=== PATIENT | male | born 1995 | race Two or more races ===

== ENCOUNTER 2016-09-10 00:36 | Inpatient (IN) | payer OTHER ==
[~2016-09-10] VITALS: Ht 175.3 cm; Wt 82.9 kg
[2016-09-10 01:41] LABS: MEAN CORPUSCULAR HEMOGLOBIN 30.8 pg (27.0-33.0); MEAN CORPUSCULAR HGB CONC 34.4 g/dl (32.0-36.5); MEAN CORPUSCULAR VOLUME 89.6 fl (80.0-96.0); WHITE BLOOD COUNT 7.5 K/mm3 (4.0-10.0)
[2016-09-10 01:58] LABS: METHADONE URINE NEGATIVE (NEGATIVE)
[2016-09-10 02:26] LABS: ALBUMIN 4.6 GM/DL (3.2-5.2); ALBUMIN/GLOBULIN RATIO 1.39 (1.00-1.93); ALKALINE PHOSPHATASE 72 U/L (45-117); ALT/SGPT 26 U/L (12-78); ANION GAP 9 MEQ/L (8-16); AST/SGOT 30 U/L (15-37); BILIRUBIN,DIRECT < 0.1 MG/DL (0.0-0.2); BILIRUBIN,TOTAL 0.2 MG/DL (0.2-1.0); BLOOD UREA NITROGEN 12 MG/DL (7-18); CALCIUM LEVEL 9.1 MG/DL (8.5-10.1); CARBON DIOXIDE LEVEL 23 MEQ/L (21-32); CHLORIDE LEVEL 109 MEQ/L (98-107); CREATININE FOR GFR 0.93 MG/DL (0.70-1.30); GLUCOSE, FASTING 97 MG/DL (70-105); SODIUM LEVEL 141 MEQ/L (136-145); TOTAL PROTEIN 7.9 GM/DL (6.4-8.2)
[2016-09-10] MEDS ORDERED: MULTIVITAMINS/MINERALS THERAP 1 TAB PO SCH (09:00)
[2016-09-10] MEDS ORDERED: SERTRALINE HCL 50 MG TAB PO SCH (09:00)
[2016-09-10] MEDS ORDERED: ACETAMINOPHEN TAB 650MG DOSE (2X325MG) PO PRN (10:00)
[2016-09-10] MEDS ORDERED: LORazepam 2 MG TAB PO PRN (10:00)
[2016-09-10] MEDS ORDERED: MOM 30ML SUSPENSION UDC PO PRN (10:00)
[2016-09-10] MEDS ORDERED: traZODone 50 MG TAB PO PRN (10:00)
[2016-09-10] MEDS ORDERED: MAALOX 30 ML SUSP *UDC PO PRN (10:00)
[2016-09-10] MEDS: SERTRALINE HCL 50 MG TAB PO SCH (11:23)
[2016-09-10] MEDS: THIAMINE 100 MG TAB PO SCH ×2 (11:23→21:25)
[2016-09-10] MEDS: MULTIVITAMINS/MINERALS THERAP 1 TAB PO SCH (11:23)
[2016-09-10] MEDS: FOLIC ACID 1 MG TAB PO SCH (11:23)
[2016-09-10] MEDS: NICOTINE 21MG/24HR 1 EA TRANSDERMAL TD SCH (11:23)
[2016-09-10 13:52] VITALS: BP 120/58
[2016-09-10] MEDS ORDERED: traZODone 100 MG TAB PO PRN (15:15)
[2016-09-10] MEDS: hydrOXYzine 50 MG TAB PO SCH ×2 (15:48→21:25)
[2016-09-10 18:11] VITALS: BP 127/66
[2016-09-10] MEDS ORDERED: THIAMINE 100 MG TAB PO SCH (21:00)
[2016-09-11] MEDS: hydrOXYzine 50 MG TAB PO SCH ×3 (05:53→21:17)
[2016-09-11 06:00] VITALS: BP 111/53
[2016-09-11] MEDS: NICOTINE 21MG/24HR 1 EA TRANSDERMAL TD SCH (09:00)
[2016-09-11] MEDS: MULTIVITAMINS/MINERALS THERAP 1 TAB PO SCH (09:25)
[2016-09-11] MEDS: THIAMINE 100 MG TAB PO SCH ×2 (09:25→21:17)
[2016-09-11] MEDS: SERTRALINE HCL 50 MG TAB PO SCH (09:25)
[2016-09-11] MEDS: FOLIC ACID 1 MG TAB PO SCH (09:25)
[2016-09-11 09:57] VITALS: BP 111/53
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
[2016-09-11] MEDS: QUEtiapine FUMARATE 100 MG TAB PO SCH ×2 (11:37→21:17)
[2016-09-11 12:00] VITALS: BP 127/64
[2016-09-11 18:18] VITALS: BP 124/64
--- NOTE | 2016-09-12 02:20 | HPE ---
DATE OF ADMISSION: 09/10/2016 HISTORY OF PRESENT ILLNESS: Please refer to psychiatric history and evaluation for further details on this admission. This examination and history is intended for medical issues, which may need treatment, followup or consult on this 21-year-old male. ALLERGIES: AMOXICILLIN. PRIMARY CARE PROVIDER: [facility]. 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 Ethyl alcohol (EtOH) once a month. Smokes one pack every 3 days. Recreational drug use: None. PAST MEDICAL HISTORY: Negative. PAST SURGICAL HISTORY: Negative. HOME MEDICATIONS: Negative. FAMILY HISTORY: Noncontributory. LABORATORY STUDIES: CBC was normal. Sodium 140, potassium 4.0, chloride 109, CO2 23, BUN 12, creatinine 0.93. EtOH 0.159. REVIEW OF SYSTEMS: 10-system review was done, was unremarkable. PHYSICAL EXAMINATION: 21-year-old cooperative male in no acute distress. Height 69 inches, weight 80.9 kg, body mass index (BMI) 26.3. Blood pressure 126/64, pulse 65, respirations 16. Patient is alert and oriented times three. Pupils equal and react to light. Extraocular muscles intact. Cornea and sclerae clear. Conjunctivae were normal. No facial asymmetry. Pharynx, tongue and gums pink and moist. Tongue is midline. Neck is supple without lymphadenopathy. No thyromegaly, no goiter. Carotids 2+ without bruit. Chest clear to auscultation without wheeze or retraction. Heart is regular. Abdomen is benign. Bowel sounds positive. Genitourinary/rectal: Not done. Extremities: Show equal strength, full range of motion. No cyanosis, clubbing or edema. Peripheral pulses equal and palpable bilaterally. Skin is warm and dry. IMPRESSION/PLAN: Psychiatric plan per psychiatry. No acute medical issues.
[2016-09-12] MEDS: hydrOXYzine 50 MG TAB PO SCH ×3 (06:02→21:19)
[2016-09-12 06:34] VITALS: BP 124/57
[2016-09-12 08:00] VITALS: BP 124/57
[2016-09-12] MEDS: QUEtiapine FUMARATE 100 MG TAB PO SCH ×2 (09:04→21:19)
[2016-09-12] MEDS: SERTRALINE HCL 50 MG TAB PO SCH (09:04)
[2016-09-12] MEDS: THIAMINE 100 MG TAB PO SCH ×2 (09:04→21:19)
[2016-09-12] MEDS: MULTIVITAMINS/MINERALS THERAP 1 TAB PO SCH (09:04)
[2016-09-12] MEDS: NICOTINE 21MG/24HR 1 EA TRANSDERMAL TD SCH (09:04)
[2016-09-12] MEDS: FOLIC ACID 1 MG TAB PO SCH (09:04)
[2016-09-12 16:36] VITALS: BP 120/73
[2016-09-12 18:00] VITALS: BP 115/60
--- NOTE | 2016-09-12 19:24 | MHIPNPDOC ---
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 Patient denies prior psychiatric history, denies history of suicide. Community Health Counselor met with patient today to assess treatment progress on inpatient unit. Patient was observed to be in bed but readily got up to meet with short story writer, indicated he had been admitted due to "thoughts of suicide," denies experiencing suicidal ideation at this time, notes he last experienced suicidal ideation just prior to hospital admission, denies having plan or intent at that time. Patient rates current anxiety level as 5/10, depression 3/10, denies suicidal and homicidal ideation, denies auditory and visual hallucinations, denies urge to engage in self-injurious behavior. Patient indicates current medication regimen is helping, notes Zoloft is effective in reducing symptoms of anxiety and depression, informs short story writer he is struggling with sleep. Patient declines to have trazodone dose increased at this time, sleep hygiene was reviewed with patient was encouraged not to nap/remain in bed during the day. Patient denies medication side effects, also denies symptoms of craving or withdrawal. Patient notes energy level remains low, described appetite as "fine, " denies challenges with concentration and focus. Patient was encouraged to be visible on the unit and participate in unit activities. Patient denies symptoms of physical pain and presents with no signs of acute distress at time of interaction. VITALS: See below NEW TEST RESULTS: No new results PAST MEDICAL/SURGICAL HISTORY: Patient denies history of chronic medical conditions, further denies history of head injury or seizure Labs on admission indicated elevated chloride UDS negative EtOH 0.159 EKG pending CURRENT MEDICATIONS: See below MENTAL STATUS EXAMINATION: General appearance: Patient is a 21-year old male, who is pleasant and cooperative though distant and somewhat difficult to engage, makes fair eye contact, is disheveled, dressed in hospital clothing, ambulates with steady gait , appears stated age. Speech: Impoverished, provides monosyllabic responses, monotone but of normal rate and rhythm, low volume, and generally spontaneous, coherent Thought processes: Linear, logical, rational Thought content: Rational, logical, no tangentiality or paranoia noted, no perseveration Abstract reasoning and computation: Requires further evaluation Description of associations: Appear intact Description of abnormal or psychotic thoughts: Denies suicidal and homicidal ideation, denies auditory and visual hallucinations, does not appear to be responding to internal stimuli, does not appear to endorse bizarre or paranoid ideation, denies preoccupation with violence or obsessions. Judgment: Poor. Insight: Poor. Orientation: A and O 3 Recent and remote memory: Fair. Attention span and concentration: Fair. Fund of knowledge: Requires further evaluation Mood: "A little better today, I think the medication might be helping." Patient appears depressed and anxious, no mood lability noted Affect: Blunted, no brightening DIAGNOSES: Adjustment disorder with mixed anxiety and depressed mood, alcohol use disorder. Rule out substance-induced mood disorder, rule out depressive disorder, rule out bereavement, rule out PTSD ASSESSMENT: Patient appears to be adjusting to unit slowly, is not participating in unit activities, remains isolative to room, is difficult to engage but generally pleasant and cooperative, has presented with no behavior management challenges. Patient states current medication regimen is helping to reduce symptoms of anxiety and depression, is aware he is also being monitored on CIMN protocol, denies symptoms of craving or withdrawal. Patient states he experienced nighttime waking last night, refuses trazodone dose increase indicating he wants to see how he sleeps tonight before medication dose increase. Sleep hygiene was reviewed with patient and patient was encouraged to be up out of bed during the day and sleeping only at night. Patient has been encouraged to be visible on unit and to participate in groups. Patient denies current suicidal or homicidal ideation and verbalizes awareness of how to access supportive services on the unit if needed. Will monitor patient's response to medications and for medication side effects.. Will evaluate patient' s safety, resolution of suicidal ideation, and discharge readiness. Patient indicates when prepared for discharge she wants to return to [facility], has no desire to exit the [employer], is agreeable to participating in outpatient behavioral health services, provides no answer when asked about interest in participating in IOP/GILMAR. customer relations coordinator is attempting to access background treatment information on patient. MANAGEMENT PLAN: Continue Zoloft 50 mg po q am, Seroquel 100 mg po BID, hydroxyzine 50 mg po q 8 hours, trazodone 100 mg po q hs, monitor need for dosing adjustment to sleep aid Patient on CIWA protocol Maintain safety precautions Patient to attend groups and participate in unit programming to develop coping strategies Engage patient in discharge planning process and arrange meeting with command to evaluate safe discharge planning when appropriate Patient to follow up with [facility] upon discharge TIME SPENT: 35 minutes Vital Signs Vital Signs Date Time Temp Pulse Resp B/P (MAP) Pulse Ox O2 Delivery O2 Flow Rate FiO2 09/12/16 18:00 98.5 58 16 115/60 (78) 09/10/16 09:35 99 Room Air Current Medications Current Medications Acetaminophen (Tylenol Tab) 650 mg Q6HP PRN PO HEADACHE or DISCOMFORT; Start at 10:00; Stop 10/10/16 at 09:59 Al Hydrox/Mg Hydrox/Simethicone (Mylanta) 30 ml Q4HP PRN PO HEARTBURN/ INDIGESTION; Start 09/10/16 at 10:00; Stop 10/10/16 at 09:59 Folic Acid (Folic Acid) 1 mg DAILY PO Last administered on 09/12/16 09:04; Start 09/10/16 at 09:00; Stop 10/10/16 at 08:59 Home Med (Med Rec Complete!) ASDIRECTED XX ; Start 09/10/16 at 09:00; Stop at 09:00; Status DC Hydroxyzine HCl (Atarax) 50 mg Q8H PO Last administered on 09/12/16 14:30; Start 09/10/16 at 14:00; Stop 10/10/16 at 13:59 Lorazepam (Ativan) 2 mg ASDIRECTED PRN PO SEE PROTOCOL; Start 09/10/16 at 10:00 ; Stop 09/17/16 at 09:59 Magnesium Hydroxide (Milk Of Magnesia) 30 ml DAILYPRN PRN PO CONSTIPATION; Start 09/10/16 at 10:00; Stop 10/10/16 at 09:59 Multivitamins (Theragram-M) 1 tab DAILY PO ; Start 09/10/16 at 09:00; Stop 09/10 at 10:05; Status DC Multivitamins (Theragram-M) 1 tab DAILY PO Last administered on 09/12/16 09:04 ; Start 09/10/16 at 09:00; Stop 10/10/16 at 08:59 Nicotine (Nicoderm Cq 21mg) 1 patch DAILY TD Last administered on 09/12/16 09: 04; Start 09/10/16 at 09:00; Stop 10/10/16 at 08:59 Quetiapine Fumarate (SEROquel) 100 mg BID PO Last administered on 09/12/16 09: 04; Start 09/11/16 at 09:00; Stop 10/11/16 at 08:59 Sertraline HCl (Zoloft) 50 mg DAILY PO ; Start 09/10/16 at 09:00; Stop 09/10/16 at 10:05; Status DC Sertraline HCl (Zoloft) 50 mg DAILY PO Last administered on 09/12/16 09:04; Start 09/10/16 at 09:00; Stop 10/10/16 at 08:59 Thiamine HCl (Thiamine HCl) 100 mg BID PO Last administered on 09/12/16 09:04 ; Start 09/10/16 at 09:00; Stop 09/13/16 at 08:59 Thiamine HCl (Thiamine HCl) 100 mg BID PO ; Start 09/10/16 at 21:00; Stop at 21:00; Status DC Trazodone HCl (Desyrel) 50 mg QHSP PRN PO INSOMNIA; Start 09/10/16 at 10:00; Stop 09/10/16 at 15:12; Status DC Trazodone HCl (Desyrel) 100 mg QHSP PRN PO INSOMNIA Last administered on 21:25; Start 09/10/16 at 15:15; Stop 10/10/16 at 15:14 Allergies Coded Allergies: Amoxicillin (Verified Allergy, Unknown, 09/10/16) Maty Hernandez Sep 12, 2016 19:24
[2016-09-13] MEDS: hydrOXYzine 50 MG TAB PO SCH ×2 (05:34→13:08)
[2016-09-13 06:00] VITALS: BP 128/64
[2016-09-13] MEDS: MULTIVITAMINS/MINERALS THERAP 1 TAB PO SCH (08:25)
[2016-09-13] MEDS: SERTRALINE HCL 50 MG TAB PO SCH (08:25)
[2016-09-13] MEDS: QUEtiapine FUMARATE 100 MG TAB PO SCH ×2 (08:25→21:34)
[2016-09-13] MEDS: FOLIC ACID 1 MG TAB PO SCH (08:25)
[2016-09-13] MEDS: NICOTINE 21MG/24HR 1 EA TRANSDERMAL TD SCH (08:39)
--- NOTE | 2016-09-13 16:53 | ECGEPIP ---
Stationary ECG Study [facility] Test Date: 2016-09-13 Pat Name: CYRUS ROMO Department: Room: [place] [address] Gender: M Interstate Planner: : 1995 Requested By: Maty Hernandez Order Number: [id number] Reading MD: Lito Sandra Measurements Intervals [place] Rate: 51 P: 55 LA: 141 QRS: 40 QRSD: 99 T: 10 QT: 408 QTc: 379 Interpretive Statements SINUS BRADYCARDIA Incomplete RBBB Early repolarization Within normal limits for age Electronically Signed On 09-13-2016 16:53:19 EDT by Lito Sandra
--- NOTE | 2016-09-13 17:19 | MHIPNPDOC ---
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 Patient denies prior psychiatric history, denies history of suicide. Website Developer met with patient today to assess treatment progress on inpatient unit. Patient was observed to be up out of bed, in lounge, isolated to self but visible, readily met with database report writer for assessment purposes. Patient spoke a little bit today about his last elation chip which ended last July, indicated relationship due to "long distance," indicates he is not close to his family, informs database report writer he does not know their contact information. Patient states he has friends in the [place] area and feels he has adequate local support. Patient reports improvement to symptoms of anxiety and depression, indicates he believes medications are helping, denies medication side effects. Patient denies suicidal and homicidal ideation, denies auditory and visual hallucinations, denies urge to engage in self-injurious behavior. Patient reports improvement to sleep, but notes he continues to experience challenges, states he does not want take trazodone for sleep but is agreeable to changing Seroquel dosing to at bedtime. Sleep hygiene was again reviewed with patient and patient was encouraged not to nap/remain in bed during the day. Patient denies symptoms of craving or withdrawal. Patient reports some improvement to energy level, states appetite is stable, denies challenges with concentration and focus. Patient was encouraged to remain visible on the unit and participate in unit activities. Patient denies symptoms of physical pain and presents with no signs of acute distress at time of interaction. VITALS: See below NEW TEST RESULTS: No new results PAST MEDICAL/SURGICAL HISTORY: Patient denies history of chronic medical conditions, further denies history of head injury or seizure Labs on admission indicated elevated chloride UDS negative EtOH 0.159 EKG pending CURRENT MEDICATIONS: See below MENTAL STATUS EXAMINATION: General appearance: Patient is a 21-year old male, who is pleasant and cooperative though remains distant, is somewhat easier to engage today, makes improved eye contact, appears less disheveled, dressed in hospital clothing, ambulates with steady gait, appears stated age. Speech: Remains impoverished but is somewhat more verbal today, remains monotone but of normal rate and rhythm, normal volume, more spontaneous today, coherent Thought processes: Linear, logical, rational Thought content: Rational, logical, no tangentiality or paranoia noted, no perseveration Abstract reasoning and computation: Requires further evaluation Description of associations: Appear intact Description of abnormal or psychotic thoughts: Denies suicidal and homicidal ideation, denies auditory and visual hallucinations, does not appear to be responding to internal stimuli, does not appear to endorse bizarre or paranoid ideation, denies preoccupation with violence or obsessions. Judgment: Poor. Insight: Poor. Orientation: A and O 3 Recent and remote memory: Fair. Attention span and concentration: Requires further evaluation but appear within normal limits Fund of knowledge: Requires further evaluation but appears within normal limits Mood: "I'm okay, maybe a little better today." Patient appears depressed, less anxious today, no mood lability noted Affect: Blunted, brightens 1, congruent with mood DIAGNOSES: Adjustment disorder with mixed anxiety and depressed mood, alcohol use disorder. Rule out substance-induced mood disorder, rule out depressive disorder, rule out bereavement, rule out PTSD ASSESSMENT: Patient continues to adjust to unit, is not participating in unit activities, is more visible on unit and less isolative to room, is somewhat easier to engage today, remains generally pleasant and cooperative, has presented with no behavior management challenges. Patient states current medication regimen continues to help reduce symptoms of anxiety and depression, is aware he is also being monitored on CIDC protocol, denies symptoms of craving or withdrawal. Patient reports some improvement to sleep but states he experienced nighttime waking last night, refuses trazodone, is agreeable to changing Seroquel to at bedtime dosing in effort to continue to improve mood and sleep. Patient denies medication side effects. Patient has been encouraged to remain visible on unit and to participate in groups. Patient denies current suicidal or homicidal ideation and verbalizes awareness of how to access supportive services on the unit if needed. Will change Seroquel to hs dosing and discontinue trazodone. Will continue to monitor patient's response to medications and for medication side effects. Will also continue to evaluate patient's safety, resolution of suicidal ideation, and discharge readiness. Patient indicates when prepared for discharge he wants to return to [place], states he has no desire to exit the [employer]. Patient remains agreeable to participating in outpatient medication management, indicates he is not interested in psychotherapy or participating in IOP/GILMAR, but states he is agreeable to following treatment recommendations of [facility]. pesticide use medical coordinator was informed today that [facility] will not be chaptering patient out of [facility] at this time, continues to attempt to access background information on patient. MANAGEMENT PLAN: Continue Zoloft 50 mg po q am. Change Seroquel to 200 mg po hs. Change hydroxyzine to 50 mg po q 8 hours PRN anxiety/agitation. Discontinue trazodone 100 mg po q hs. Patient remains on CIWA protocol Maintain safety precautions Patient to attend groups and participate in unit programming to develop coping strategies Engage patient in discharge planning process and arrange meeting with command to evaluate safe discharge planning when appropriate Patient to follow up with [facility] upon discharge TIME SPENT: 35 minutes Vital Signs Vital Signs Date Time Temp Pulse Resp B/P (MAP) Pulse Ox O2 Delivery O2 Flow Rate FiO2 09/13/16 06:00 97.6 58 16 128/64 (85) 99 Room Air Current Medications Current Medications Acetaminophen (Tylenol Tab) 650 mg Q6HP PRN PO HEADACHE or DISCOMFORT; Start at 10:00; Stop 10/10/16 at 09:59 Al Hydrox/Mg Hydrox/Simethicone (Mylanta) 30 ml Q4HP PRN PO HEARTBURN/ INDIGESTION; Start 09/10/16 at 10:00; Stop 10/10/16 at 09:59 Folic Acid (Folic Acid) 1 mg DAILY PO Last administered on 09/13/16 08:25; Start 09/10/16 at 09:00; Stop 10/10/16 at 08:59 Home Med (Med Rec Complete!) ASDIRECTED XX ; Start 09/10/16 at 09:00; Stop at 09:00; Status DC Hydroxyzine HCl (Atarax) 50 mg Q8H PO Last administered on 09/13/16 13:08; Start 09/10/16 at 14:00; Stop 10/10/16 at 13:59 Lorazepam (Ativan) 2 mg ASDIRECTED PRN PO SEE PROTOCOL; Start 09/10/16 at 10:00 ; Stop 09/17/16 at 09:59 Magnesium Hydroxide (Milk Of Magnesia) 30 ml DAILYPRN PRN PO CONSTIPATION; Start 09/10/16 at 10:00; Stop 10/10/16 at 09:59 Multivitamins (Theragram-M) 1 tab DAILY PO ; Start 09/10/16 at 09:00; Stop 09/10 at 10:05; Status DC Multivitamins (Theragram-M) 1 tab DAILY PO Last administered on 09/13/16 08:25 ; Start 09/10/16 at 09:00; Stop 10/10/16 at 08:59 Nicotine (Nicoderm Cq 21mg) 1 patch DAILY TD Last administered on 09/12/16 09: 04; Start 09/10/16 at 09:00; Stop 10/10/16 at 08:59 Quetiapine Fumarate (SEROquel) 100 mg BID PO Last administered on 09/13/16 08: 25; Start 09/11/16 at 09:00; Stop 10/11/16 at 08:59 Sertraline HCl (Zoloft) 50 mg DAILY PO ; Start 09/10/16 at 09:00; Stop 09/10/16 at 10:05; Status DC Sertraline HCl (Zoloft) 50 mg DAILY PO Last administered on 09/13/16 08:25; Start 09/10/16 at 09:00; Stop 10/10/16 at 08:59 Thiamine HCl (Thiamine HCl) 100 mg BID PO Last administered on 09/12/16 21:19 ; Start 09/10/16 at 09:00; Stop 09/13/16 at 08:59; Status DC Thiamine HCl (Thiamine HCl) 100 mg BID PO ; Start 09/10/16 at 21:00; Stop at 21:00; Status DC Trazodone HCl (Desyrel) 50 mg QHSP PRN PO INSOMNIA; Start 09/10/16 at 10:00; Stop 09/10/16 at 15:12; Status DC Trazodone HCl (Desyrel) 100 mg QHSP PRN PO INSOMNIA Last administered on 21:25; Start 09/10/16 at 15:15; Stop 10/10/16 at 15:14 Allergies Coded Allergies: Amoxicillin (Verified Allergy, Unknown, 09/10/16) Maty Hernandez Sep 13, 2016 17:19
[2016-09-13 18:00] VITALS: BP 112/59
[2016-09-13 21:00] VITALS: BP 122/62
[2016-09-13 21:45] VITALS: BP 112/59
[2016-09-13] MEDS ORDERED: hydrOXYzine 50 MG TAB PO PRN (22:00)
[2016-09-14 06:59] VITALS: BP 120/57
[2016-09-14 08:30] VITALS: BP 120/57
[2016-09-14] MEDS: MULTIVITAMINS/MINERALS THERAP 1 TAB PO SCH (08:45)
[2016-09-14] MEDS: FOLIC ACID 1 MG TAB PO SCH (08:45)
[2016-09-14] MEDS: SERTRALINE HCL 50 MG TAB PO SCH (08:46)
[2016-09-14] MEDS: NICOTINE 21MG/24HR 1 EA TRANSDERMAL TD SCH (08:46)
--- NOTE | 2016-09-14 09:28 | MHIPNPDOC ---
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 Patient denies prior psychiatric history, denies history of suicide. Stave Log Ripsaw Operator met with patient today to assess treatment progress on inpatient unit. Patient was observed to be up out of bed, in lounge, engaging with peers at table, readily met with resume writer for assessment purposes. Patient today spoke openly today about limited support at home in [place], [place], on [facility] , states he has limited contact with family but indicated he has friends at [place], and was able to engage in the safety planning process, verbalizes concrete strategies for mitigating symptoms of anxiety, depression, or suicidal ideation, frustration/aggression should they reemerge. Patient states he feels he has better understanding of peers suicide on [facility], indicates he is aware that he is not responsible for peers choices or actions. Patient states current medication remains effective and he denies medication side effects, is aware he will receive Seroquel hs dosing tonight. Patient rates current anxiety level as 1/10, depression 1/10, denies suicidal and homicidal ideation, denies auditory and visual hallucinations, denies urge to engage in self-injurious behavior. Patient reports ongoing improvement to sleep and sleep hygiene was again reviewed with patient and patient was encouraged not to nap/remain in bed during the day. Patient denies symptoms of craving or withdrawal. Patient reports improvement to energy level, states appetite is stable, denies challenges with concentration and focus. Patient denies symptoms of physical pain and presents with no signs of acute distress at time of interaction. VITALS: See below NEW TEST RESULTS: No new results PAST MEDICAL/SURGICAL HISTORY: Patient denies history of chronic medical conditions, further denies history of head injury or seizure Labs on admission indicated elevated chloride UDS negative EtOH 0.159 EKG pending CURRENT MEDICATIONS: See below MENTAL STATUS EXAMINATION: General appearance: Patient is a 21-year old male, who is pleasant and cooperative, noticeably easier to engage today, makes good eye contact, exhibits adequate personal hygiene, dressed in hospital clothing, ambulates with steady gait, appears stated age. Speech: Remains reserved but initiates conversation today, is more verbal, of normal rate, rhythm, volume more spontaneous today, coherent Thought processes: Linear, logical, rational, goal-directed Thought content: Rational, logical, no tangentiality or paranoia noted, no perseveration Abstract reasoning and computation: Adequate Description of associations: Intact Description of abnormal or psychotic thoughts: Denies suicidal and homicidal ideation, denies auditory and visual hallucinations, does not appear to be responding to internal stimuli, does not appear to endorse bizarre or paranoid ideation, denies preoccupation with violence or obsessions. Judgment: Fair, has improved during treatment Insight: Fair, has improved during treatment Orientation: A and O 3 Recent and remote memory: Appears intact Attention span and concentration: Within normal limits Fund of knowledge: Adequate Mood: "I'm feeling better today, I feel ready to go back to the [employer]." Patient is noticeably less depressed and anxious, no mood lability noted Affect: Blunted, brightens 1, congruent with mood DIAGNOSES: Adjustment disorder with mixed anxiety and depressed mood, alcohol use disorder. Rule out substance-induced mood disorder, rule out MDD ASSESSMENT: Patient continues to adjust to unit, is participating well in unit activities, has been visible, is brighter, more engageable and conversant, remains pleasant and cooperative, and has presented with no behavior management challenges. Patient notes current medication regimen continues to help reduce symptoms of anxiety and depression, remains on CIWA protocol, denies symptoms of craving or withdrawal, has not needed to utilize hydroxyzine PRN today. Patient reports some improvement to sleep, denies medication side effects. Patient has been encouraged to remain visible on unit and to participate in groups. Patient denies current suicidal or homicidal ideation and verbalizes awareness of how to access supportive services on the unit if needed. Seroquel has been changed to hs dosing. Will continue to monitor patient's response to medications and for medication side effects. Will also continue to evaluate patient's safety and discharge readiness. Patient indicates when prepared for discharge he wants to return to [place], states he has no desire to exit the [employer]. Patient remains agreeable to participating in outpatient medication management, today states he will also willingly participate in psychotherapy and IOP/GILMAR if indicated by providers. security coordinator was informed today that [facility] will not be chaptering patient out of [employer] at this time. Patient has consistently declined to permit communication with family in [place], states he has support system at [place]. Patient is requesting discharge, states he feels stable and ready to return to [place], and is aware that meeting has been scheduled with [facility] for tomorrow with discharge tentatively scheduled to follow meeting. MANAGEMENT PLAN: Continue Zoloft 50 mg po q am, Seroquel 200 mg po hs. Change hydroxyzine to 50 mg po q 8 hours PRN anxiety/agitation. Patient remains on CIWA protocol Maintain safety precautions Patient to attend groups and participate in unit programming to develop coping strategies Engage patient in discharge planning process and arrange meeting with [facility] to evaluate safe discharge planning when appropriate Patient to follow up with [facility] upon discharge TIME SPENT: 35 minutes Vital Signs Vital Signs Date Time Temp Pulse Resp B/P (MAP) Pulse Ox O2 Delivery O2 Flow Rate FiO2 09/14/16 06:59 98.6 60 16 120/57 (78) 09/13/16 06:00 99 Room Air Current Medications Current Medications Acetaminophen (Tylenol Tab) 650 mg Q6HP PRN PO HEADACHE or DISCOMFORT; Start at 10:00; Stop 10/10/16 at 09:59 Al Hydrox/Mg Hydrox/Simethicone (Mylanta) 30 ml Q4HP PRN PO HEARTBURN/ INDIGESTION; Start 09/10/16 at 10:00; Stop 10/10/16 at 09:59 Folic Acid (Folic Acid) 1 mg DAILY PO Last administered on 09/13/16 08:25; Start 09/10/16 at 09:00; Stop 10/10/16 at 08:59 Home Med (Med Rec Complete!) ASDIRECTED XX ; Start 09/10/16 at 09:00; Stop at 09:00; Status DC Hydroxyzine HCl (Atarax) 50 mg Q8H PO Last administered on 09/13/16 13:08; Start 09/10/16 at 14:00; Stop 09/13/16 at 18:01; Status DC Hydroxyzine HCl (Atarax) 50 mg Q8H PRN PO anxiety/agitation; Start 09/13/16 at 22:00; Stop 10/13/16 at 21:59 Lorazepam (Ativan) 2 mg ASDIRECTED PRN PO SEE PROTOCOL; Start 09/10/16 at 10:00 ; Stop 09/17/16 at 09:59 Magnesium Hydroxide (Milk Of Magnesia) 30 ml DAILYPRN PRN PO CONSTIPATION; Start 09/10/16 at 10:00; Stop 10/10/16 at 09:59 Multivitamins (Theragram-M) 1 tab DAILY PO ; Start 09/10/16 at 09:00; Stop 09/10 at 10:05; Status DC Multivitamins (Theragram-M) 1 tab DAILY PO Last administered on 09/13/16 08:25 ; Start 09/10/16 at 09:00; Stop 10/10/16 at 08:59 Nicotine (Nicoderm Cq 21mg) 1 patch DAILY TD Last administered on 09/14/16 08: 46; Start 09/10/16 at 09:00; Stop 10/10/16 at 08:59 Quetiapine Fumarate (SEROquel) 100 mg BID PO Last administered on 09/13/16 21: 34; Start 09/11/16 at 09:00; Stop 09/13/16 at 23:59; Status DC Quetiapine Fumarate (SEROquel) 200 mg QHS PO ; Start 09/14/16 at 21:00; Stop 10/14 at 20:59 Sertraline HCl (Zoloft) 50 mg DAILY PO ; Start 09/10/16 at 09:00; Stop 09/10/16 at 10:05; Status DC Sertraline HCl (Zoloft) 50 mg DAILY PO Last administered on 09/14/16 08:46; Start 09/10/16 at 09:00; Stop 10/10/16 at 08:59 Thiamine HCl (Thiamine HCl) 100 mg BID PO Last administered on 09/12/16 21:19 ; Start 09/10/16 at 09:00; Stop 09/13/16 at 08:59; Status DC Thiamine HCl (Thiamine HCl) 100 mg BID PO ; Start 09/10/16 at 21:00; Stop at 21:00; Status DC Trazodone HCl (Desyrel) 50 mg QHSP PRN PO INSOMNIA; Start 09/10/16 at 10:00; Stop 09/10/16 at 15:12; Status DC Trazodone HCl (Desyrel) 100 mg QHSP PRN PO INSOMNIA Last administered on t 21:25; Start 09/10/16 at 15:15; Stop 09/13/16 at 18:01; Status DC Allergies Coded Allergies: Amoxicillin (Verified Allergy, Unknown, 09/10/16) Maty Hernandez Sep 14, 2016 09:28
[2016-09-14 18:00] VITALS: BP 126/70
[2016-09-14] MEDS ORDERED: QUEtiapine FUMARATE 200 MG TAB PO SCH (21:00)
[2016-09-15 06:23] VITALS: BP 108/56
[2016-09-15] MEDS: NICOTINE 21MG/24HR 1 EA TRANSDERMAL TD SCH (08:46)
[2016-09-15] MEDS: SERTRALINE HCL 50 MG TAB PO SCH (08:46)
[2016-09-15] MEDS: FOLIC ACID 1 MG TAB PO SCH (08:53)
[2016-09-15] MEDS: MULTIVITAMINS/MINERALS THERAP 1 TAB PO SCH (08:53)
[2016-09-15] MEDS ORDERED: SERO1TAB PO (11:21)
[2016-09-15] MEDS ORDERED: SERT50TA PO (11:22)
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
[2016-09-15] MEDS ORDERED: HYDRO50TAB PO (11:59)
[2016-09-15] MEDS ORDERED: NICO21PAT TD (11:59)
== END 2016-09-15 12:50 | disposition home or self-care (01) | DRG 882 ==
LOC: M ED 00:36 → M ED INP 08:25 → M ED 10:04 → M PSY 10:43
PROVIDERS: ADMIT Psychiatry & Neurology Psychiatry; ATTEND Psychiatry & Neurology Psychiatry
DX: F43.25 Adjustment disorder with mixed disturbance of emotions and conduct (principal); F10.10 Alcohol abuse, uncomplicated; F19.94 Other psychoactive substance use, unspecified with psychoactive substance-induced mood disorder; F17.200 Nicotine dependence, unspecified, uncomplicated